=== PATIENT | male | born 1995 | race Hispanic/Latino ===

== ENCOUNTER → 2017-12-22 | Outpatient (CLI) | payer SELFPAY | LOC: M ADAMS 12:09 | DX: S60.222A Contusion of left hand, initial encounter (principal); S60.052A Contusion of left little finger without damage to nail, initial encounter; S60.042A Contusion of left ring finger without damage to nail, initial encounter; X58.XXXA Exposure to other specified factors, initial encounter; Y92.9 Unspecified place or not applicable; Y93.9 Activity, unspecified | CPT/HCPCS: 73130 ==